=== PATIENT | male | born 1980 | race Caucasian/White ===

== ENCOUNTER 2018-01-01 13:01 | Emergency (ER) | payer OTHER ==
[~2018-01-01] VITALS: Ht 175.3 cm; Wt 98.9 kg
[2018-01-01 13:58] LABS: HEMATOCRIT 43.1 % (42.0-52.0); HEMOGLOBIN 14.5 gm/dL (14.0-18.0); MCHC 33.7 g/dL (28.0-37.0); MCV 88.9 fL (80.0-100.0); RBC 4.85 mil/uL (4.50-6.00); RDW 14.2 % (10.5-14.5); WBC 13.3 thou/uL (4.0-11.0)
[2018-01-01 14:30] LABS: ABSOLUTE NEUTROPHILS 7.3 thou/uL (1.4-8.2)
[2018-01-01 14:36] LABS: PLATELET COUNT 259 thou/uL (150-400)
[2018-01-01 14:43] LABS: URINE BILIRUBIN NEGATIVE (Negative); URINE BLOOD 1+ (Negative); URINE CLARITY CLEAR; URINE COLOR YELLOW; URINE GLUCOSE-RANDOM* NEGATIVE (Negative); URINE KETONES NEGATIVE (Negative); URINE LEUKOCYTES-REFLEX NEGATIVE (Negative); URINE NITRITE-REFLEX NEGATIVE (Negative); URINE PROTEIN (DIPSTICK) NEGATIVE (Negative); URINE SPECIFIC GRAVITY <= 1.005 (1.005-1.035); URINE UROBILINOGEN 0.2 E.U./dl (0.2-1.0)
[2018-01-01 14:50] LABS: BACTERIA-REFLEX None Seen /HPF (None Seen); CASTS None Seen /LPF (None Seen); SQUAMOUS None Seen /LPF (0-3); URINE RBC 0-2 Rare /HPF (0-2); URINE WBC-REFLEX None Seen /HPF (0-5)
[2018-01-01 14:51] LABS: CRYSTALS None Seen /LPF (None Seen)
[2018-01-01 15:21] LABS: ALBUMIN 3.9 g/dL (3.4-5.0); CALCIUM 9.1 mg/dL (8.5-10.1); CREATININE 0.9 mg/dL (0.7-1.3); POTASSIUM 4.5 mmol/L (3.5-5.1); TOTAL BILIRUBIN 0.4 mg/dL (<0.1-1.0); TOTAL PROTEIN 7.4 g/dL (6.4-8.2)
[2018-01-01 15:57] VITALS: BP 133/87
[2018-01-01] MEDS ORDERED: XANAX1 MG PO (16:04)
== END 2018-01-01 18:39 | disposition home or self-care (01) ==
LOC: ER 13:01
PROVIDERS: Emergency Medicine
DX: R10.32 Left lower quadrant pain (principal); R19.7 Diarrhea, unspecified; F41.9 Anxiety disorder, unspecified; R31.9 Hematuria, unspecified; F17.210 Nicotine dependence, cigarettes, uncomplicated

== ENCOUNTER 2018-04-09 18:27 | Inpatient (IN) | payer OTHER ==
[~2018-04-09] VITALS: Ht 172.7 cm; Wt 90.7 kg
--- NOTE | ~2018-04-09 | EKG ---
[address] [address] ELECTROCARDIOGRAM REPORT Name: BRYN MYERS Room #: 426- ADM IN M.R.#: [id number] Admission: 04/09/18 Attend Phys: Jessika Cuba Discharge: Date of : 76 Report #: [id number] THIS REPORT FOR: //name// [facility] ED Test Date: 2018-04-09 Test Time: 21:57:15 Pat Name: BRYN MYERS Department: Room: 426 Gender: M Stitching Department Supervisor: RENZOGJ : 1980 Requested By: Jessika Cuba Order Number: [id number] MD: Jarret Diamond Measurements Intervals [place] Rate: 64 P: 45 NE: 162 QRS: 38 QRSD: 120 T: 35 QT: 419 QTc: 433 Interpretive Statements Sinus rhythm Early R-wave progression No previous ECG available for comparison Electronically Signed On 04-10-2018 8:25:05 CDT by Jarret Diamond [email or web address] <ELECTRONICALLY SIGNED> By: Jarret Diamond MD, [facility] 04/10/18 0825 [id number] Jarret Diamond MD, FACC /EPI
[~2018-04-09 18:27] MED LIST: XANAX1 MG PO
[2018-04-09 19:00] VITALS: BP 133/90
[2018-04-09] MEDS ORDERED: SERTRALINE HCL50 MG PO (19:03)
[2018-04-09 20:33] LABS: URINE BLOOD TRACE (Negative); URINE CLARITY CLEAR; URINE COLOR YELLOW; URINE GLUCOSE-RANDOM* NEGATIVE (Negative); URINE KETONES 1+ (Negative); URINE LEUKOCYTES-REFLEX NEGATIVE (Negative); URINE NITRITE-REFLEX NEGATIVE (Negative); URINE PROTEIN (DIPSTICK) 1+ (Negative); URINE SPECIFIC GRAVITY >= 1.030 (1.005-1.035)
[2018-04-09 20:38] LABS: ICTOTEST (BILI CONFIRMATORY) Negative (Negative); URINE BILIRUBIN NEGATIVE (Negative)
[2018-04-09 20:46] LABS: BACTERIA-REFLEX 1-9 Few /HPF (None Seen); CASTS None Seen /LPF (None Seen); CRYSTALS None Seen /LPF (None Seen); SQUAMOUS 0-3 Few /LPF (0-3); URINE RBC None Seen /HPF (0-2); URINE WBC-REFLEX 0-5 Rare /HPF (0-5)
[2018-04-09 20:59] LABS: ABSOLUTE NEUTROPHILS 5.8 thou/uL (1.4-8.2); BASOPHILS 0.9 % (0.0-2.0); EOSINOPHILS 2.4 % (0.0-3.0); HEMATOCRIT 38.4 % (42.0-52.0); HEMOGLOBIN 12.9 gm/dL (14.0-18.0); MCH 29.4 pg (26.0-34.0); MCHC 33.7 g/dL (28.0-37.0); MCV 87.3 fL (80.0-100.0); PLATELET COUNT 314 thou/uL (150-400); POLYS 62.7 % (36.0-66.0); RDW 13.9 % (10.5-14.5); WBC 9.2 thou/uL (4.0-11.0)
[2018-04-09 21:06] LABS: CALCIUM 8.9 mg/dL (8.5-10.1); CREATININE 0.9 mg/dL (0.7-1.3); POTASSIUM 3.6 mmol/L (3.5-5.1)
[2018-04-09 21:12] LABS: ALBUMIN 3.2 g/dL (3.4-5.0); TOTAL BILIRUBIN 0.4 mg/dL (<0.1-1.0); TOTAL PROTEIN 7.5 g/dL (6.4-8.2)
[2018-04-09 23:07] VITALS: BP 114/56
[2018-04-10 00:14] VITALS: BP 114/56
[2018-04-10 00:30] VITALS: BP 116/64
[2018-04-10 04:00] VITALS: BP 117/68
[2018-04-10 06:00] VITALS: BP 117/68
[2018-04-10 12:15] LABS: ABSOLUTE NEUTROPHILS 4.2 thou/uL (1.4-8.2); BASOPHILS 1.1 % (0.0-2.0); EOSINOPHILS 3.1 % (0.0-3.0); HEMATOCRIT 37.8 % (42.0-52.0); HEMOGLOBIN 12.4 gm/dL (14.0-18.0); LYMPHOCYTES 26.7 % (24.0-44.0); MCHC 32.8 g/dL (28.0-37.0); MCV 88.4 fL (80.0-100.0); MONOCYTES 6.7 % (1.0-8.0); PLATELET COUNT 274 thou/uL (150-400); POLYS 62.4 % (36.0-66.0); RBC 4.28 mil/uL (4.50-6.00); RDW 14.1 % (10.5-14.5); WBC 6.6 thou/uL (4.0-11.0)
[2018-04-10 12:37] LABS: ALBUMIN 3.1 g/dL (3.4-5.0); CHOLESTEROL 108 mg/dL (<200); DIRECT BILIRUBIN 0.2 mg/dL (<0.1-0.3); HDL CHOLESTEROL 22 mg/dL (>40); LDL CHOLESTEROL 71 mg/dL (<100); SGOT 35 U/L (15-37); SGPT 51 U/L (30-65); TC:HDL 4.9 Ratio (Not establshd); TOTAL BILIRUBIN 0.5 mg/dL (<0.1-1.0); TOTAL PROTEIN 7.1 g/dL (6.4-8.2); TRIGLYCERIDE 77 mg/dL (<150); VLDL 15 mg/dL (<40)
[2018-04-10 15:57] VITALS: BP 132/80
[2018-04-10 20:00] VITALS: BP 118/81
[2018-04-11 02:06] LABS: GLYCOHEMOGLOBIN (HGB A1C) 5.7 % (4.8-5.6)
[2018-04-11 03:08] LABS: HEMATOCRIT 35.5 % (42.0-52.0); HEMOGLOBIN 11.7 gm/dL (14.0-18.0); MCH 28.9 pg (26.0-34.0); MCV 87.5 fL (80.0-100.0); RBC 4.06 mil/uL (4.50-6.00)
[2018-04-11 03:19] LABS: CALCIUM 8.3 mg/dL (8.5-10.1); CREATININE 0.9 mg/dL (0.7-1.3); POTASSIUM 3.9 mmol/L (3.5-5.1)
[2018-04-11 04:00] VITALS: BP 106/63
[2018-04-11 08:15] VITALS: BP 97/54
[2018-04-11] MEDS ORDERED: NICOTINE TRANSD14 M1 TRANSDERM (18:06)
[2018-04-11] MEDS ORDERED: PROTONIX40 M1 PO (18:06)
[2018-04-11] MEDS ORDERED: NORCO 5-325 TA1 EACH PO (18:07)
[2018-04-11 18:27] VITALS: BP 97/54
== END 2018-04-11 19:39 | disposition home or self-care (01) | DRG 438 ==
LOC: ER 18:27 → EROBS 22:27 → 4E 22:27
PROVIDERS: Hospitalist; Nurse Practitioner Family; Physician Assistant
DX: K85.90 Acute pancreatitis without necrosis or infection, unspecified (principal); K65.8 Other peritonitis; F41.9 Anxiety disorder, unspecified; F32.9 Major depressive disorder, single episode, unspecified; K21.9 Gastro-esophageal reflux disease without esophagitis; F12.90 Cannabis use, unspecified, uncomplicated; F17.210 Nicotine dependence, cigarettes, uncomplicated; Z83.3 Family history of diabetes mellitus; Z88.8 Allergy status to other drugs, medicaments and biological substances; Z85.07 Personal history of malignant neoplasm of pancreas; Z79.899 Other long term (current) drug therapy
CPT/HCPCS: 10084